=== PATIENT | female | born 1995 | race American Indian/Alaskan Native ===

== ENCOUNTER 2017-03-17 16:49 | Emergency (ER) | payer OTHER ==
[2017-03-17 17:38] VITALS: BMI 35.1
[2017-03-17 18:09] LABS: RBC URINE 1 /hpf (0-3); URINE BACTERIA RARE (<OCC); URINE BILIRUBIN NEGATIVE (NEGATIVE); URINE BLOOD NEGATIVE (NEGATIVE); URINE COLOR Yellow (YELLOW); URINE GLUCOSE (UA) NORMAL (Normal); URINE KETONE NEGATIVE (NEGATIVE); URINE LEUKOCYTE ESTERASE NEG Leu/uL (Negative); URINE PROTEIN NEGATIVE (NEGATIVE); URINE UROBILINOGEN NORMAL mg/dL (0.2-1.0); WBC URINE 4 /hpf (0-5)
--- NOTE | 2017-03-17 18:42 | OBHP ---
Datetime: 03/17/2017 17:23 IP Adm Impression: No Active Labor IP Admit Plan: Discharge home Admit Comment, IP Provider: 21 year old obese female at 27 weeks and 1 day presents to the [facility] BED due to cramping pain. Patient states the pain is cramping and it started 3 days ago and has been constant. The pain is located in her pelvic area and radiates around all of her abdomen. She states she decided to come to the hospital today because she had a nutritonist appointment at the hospital due to her weight. Patient states the pain is at a constant. Nothing makes the pain better or worse . She states she subjectively thinks she had a fever yesterday and she also had a headache. She yesenia es vaginal bleeding, vaginal discharge, dysuria, nausea or vomiting. She states she does feel the ba by moving. [employer] History: [facility]; [facility] 06/15/17; LMP: 09/19/16; ; Next obgyn appointment is 03/02 11/15 Medical History: Denies Surgical History: Denies Medications: Allergies: NKDA Family History: Denies Social: Cigarettes 2x per day for the past year, denies alcohol or drug use Vitals: B/P 143/79; HR 72; Temp 97.2, O2: 100%RA A/P: 21 year old obese female at 27 weeks and 1 day presents to the [facility] due to cramping p ain for 3 days. 1.) f/u UA 2.) Monitor B/P 3.) Disposition: patient to follow up with obgyn with her appointment 03/18/[address] Eulalio Ortega PGY-1 OB attending patient with lower abdominal pain.Pian better now. UA neg for nitrites and LE cERVIX LONG/THICK AND CLOSED A/P Patient with lower abdominal pain.No active labor -patient discharged home -follow up in clinic in am Pelvic Type - PN: Adequate Extremities - PN: Normal Abdomen - PN: Normal Back - PN: Normal Breast - PN: Normal Lungs - PN: Normal Heart - PN: Normal Thyroid - PN: Normal Neurologic - PN: Normal HEENT - PN: Normal General - PN: Normal Comments, ACOG Physical Exam: Awake, Alert, Oriented x3 Patient was sleeping when arrived at bedside in no distress Cardiac: S1S2, RRR, no murmurs, rubs or gallops Lungs: Clear lung sounds bilaterally Abdomen: Soft, non-tender, , normal bowel sounds Lower Extremities: non-tender, non-swollen Vaginal Exam: Closed FHR: 140bpm; accelerations, 10x10 moderate variability [place]: Irregulary contractions with an 30-40MVU Gestation - Est Wks by US: 27.0 EGA AdmitDate IP: 27.1 Vital Signs Provider: Reviewed IP Chief Complaint: Maternal discomfort FHR Category Provider Fetus A: Category I Genitourinary Exam: Normal DTRs - PN: Normal
[2017-03-17 23:11] VITALS: BP 131/72; PULSE 99; TEMP 97.2; O2SAT 100
== END 2017-03-17 19:09 | disposition home or self-care (01) ==
LOC: C.EROB 16:49
DX: Z3A.27 27 weeks gestation of pregnancy (principal); R10.9 Unspecified abdominal pain